=== PATIENT | female | born 1955 | race Caucasian/White ===

== ENCOUNTER 2019-10-04 07:19 | Outpatient (CLI) | payer OTHER | END 2019-10-04 07:20 | disposition critical access hospital (66) | LOC: EMS 07:19 | PROVIDERS: ATTEND Surgery | DX: R03.0 Elevated blood-pressure reading, without diagnosis of hypertension (principal); R68.89 Other general symptoms and signs | CPT/HCPCS: A0425; A0429 ==

== ENCOUNTER 2020-03-10 10:07 | Emergency (ER) | payer OTHER ==
--- NOTE | 2020-03-10 10:32 | ED Physician Documentation ---
PD HPI FOCAL NEURO - Stated complaint Stated Complaint: HIGH BLOOD PRESSURE - Chief complaint Chief Complaint: Cardiac - History obtained from History obtained from: Patient - Additional information Additional information: 64-year-old woman with an acute disequilibrium starting between 4 and 6 AM this morning. She feels like she is off balance. She has a history of stroke last year and is on aspirin, Plavix, lisinopril, atorvastatin, hydrochlorothiazide. She checks her blood pressure several times and it is elevated and she is concerned about that. Denies chest pain, trouble breathing, headache. Review of Systems Ten Systems: 10 systems reviewed and negative Constitutional: reports: Reviewed and negative Cardiac: reports: Reviewed and negative Respiratory: reports: Reviewed and negative PD PAST MEDICAL HISTORY - Past Medical History Past Medical History: Yes Neuro: CVA, TIA - Present Medications Home Medications: Ambulatory Orders Medication Instructions Recorded Confirmed Aspirin [Aspirin EC] 1 tab PO DAILY MDD 1 10/04/19 10/04/19 Atorvastatin Calcium 2 tab PO DAILY 10/04/19 10/04/19 Clopidogrel [Plavix] 1 tab PO DAILY 10/04/19 10/04/19 Lisinopril/Hydrochlorothiazide 1 tab PO DAILY #30 tablet 10/04/19 [Lisinopril-Hctz 20-25 mg Tab] - Allergies Allergies/Adverse Reactions: Allergies Allergy/AdvReac Type Severity Reaction Status Date / Time No Known Drug Allergies Allergy Verified 03/10/20 10:29 - Social History Does the pt smoke?: No Smoking Status: Never smoker Does the pt drink ETOH?: No Does the pt have substance abuse?: No - Immunizations Immunizations are current?: Yes - POLST Patient has POLST: No PD ED PE NORMAL - Vitals Vital signs reviewed: Yes - General General: Alert and oriented X 3, No acute distress - HEENT HEENT: PERRL, EOMI - Neck Neck: Supple, no meningeal sign, No bony TTP - Cardiac Cardiac: RRR, No murmur - Respiratory Respiratory: No respiratory distress, Clear bilaterally - Abdomen Abdomen: Normal bowel sounds, Soft, Non tender - Back Back: No CVA TTP, No spinal TTP - Derm Derm: Normal color, Warm and dry - Extremities Extremities: No edema, No calf tenderness / cord - Neuro Neuro: Alert and oriented X 3, No motor deficit, No sensory deficit, Normal speech Eye Opening: Spontaneous Motor: Obeys Commands Verbal: Oriented GCS Score: 15 - Psych Psych: Normal mood, Normal affect NIHSS - Time Time: 10:20 - Level of Consciousness Level of consciousness: (0) Alert, Keenly responsive LOC Questions: (0) Answers both Q's correct LOC Commands: (0) Performs both correctly - Gaze Best Gaze: (0) Normal - Visual Visual: (0) No loss - Facial Palsy Facial Palsy: (0) Normal, symmetrical movement - Motor Arms (both separate) Motor Arm (right): (0) No drift Motor Arm (left): (0) No drift - Motor Legs (both separate) Motor Leg (right): (0) No drift Motor Leg (left): (0) No drift - Limb Ataxia Limb Ataxia: (0) Absent - Sensory Sensory: (0) Normal - Best Language Best Language: (0) No aphasia - Dysarthria Dysarthria: (0) Normal - Extinction and Inattention (formally neg Extinction and inattention: (0) No abnormality - Total Score/Results Total Score/Result: 0 Results - Vitals Vitals: Vital Signs - 24 hr 03/10/20 03/10/20 03/10/20 10:12 10:29 11:14 Temperature 36.1 C L 36.7 C Heart Rate 66 71 53 L Respiratory 16 14 13 Rate Blood Pressure 180/82 H 157/71 H 171/85 H O2 Saturation 100 99 99 Oxygen O2 Source Room air - EKG (time done) 1017 Rate: Rate (enter#) (62) Rhythm: NSR [place]: Normal Intervals: Prolonged [place], Other (LAFB) Ischemia: Normal ST segments Computer interpretation: Agree with computer - Labs Labs: Laboratory Tests 03/10/20 03/10/20 03/10/20 10:30 10:30 10:47 WBC 4.7 L RBC 4.58 Hgb 14.4 Hct 41.9 MCV 91.5 MCH 31.4 H MCHC 34.4 RDW 11.7 L Plt Count 220 MPV 8.9 Neut # (Auto) 2.9 Lymph # (Auto) 1.2 L [place] # (Auto) 0.4 Eos # (Auto) 0.2 Baso # (Auto) 0.1 Absolute Nucleated RBC 0.00 Nucleated RBC % 0.0 PT 12.5 INR 1.1 Sodium 141 Potassium 3.7 Chloride 104 Carbon Dioxide 27 Anion Gap 10.0 BUN 15 Creatinine 0.7 Estimated GFR (MDRD) 84 L Glucose 109 H Calcium 9.4 PD MEDICAL DECISION MAKING - ED course ED course: 64-year-old woman with history of stroke presents with an acute disequilibrium, NIH stroke scale is 0. She noted elevated blood pressures at home. Initial plan was to get MRI and monitor her blood pressures potentially treating them. MRI is down no so change to CT angiography of the head and neck. Given the NIH stroke scale of 0 and timing potentially having started 6-1/2 hours ago I do not think she is a TPA candidate. 64-year-old woman presents with an acute disequilibrium and elevated blood pressures in the setting of having had a stroke maybe 5 or 6 months ago. Her NIH stroke scale was 0 but she did need assistance walking here. Initially ordered MRI but it was canceled because her MRI is down to due to a power outag e, CT angiography of the head and neck was negative with the exception of a left thyroid cyst which was discussed with the patient and discussed need for follow- up imaging with her PCP. Given persistent neurologic symptoms, probably needs MRI and call to [facility] at patient's request at 11:40 AM. Initially spoke with the emergency department physician, Dr. Cassidy who wondered if the patient could be a direct admit and then subsequently spoke with their hospitalist, Dr. Mitchell Duarte who accepts to his service. Patient's request to go private vehicle with her child driving. She did decide this after discussion of risks and benefits and signed the transfer by private vehicle addendum. Departure - Departure Disposition: 02 Transfer Acute Care Hosp Clinical Impression: Stroke-like symptom, Dysequilibrium, Elevated blood pressure reading, Thyroid nodule Condition: Stable
[2020-03-10 10:34] LABS: BASOPHILS # (AUTO) 0.1 10^3/uL (0.0-0.1); BASOPHILS % (AUTO) 1.1 %; EOSINOPHILS # (AUTO) 0.2 10^3/uL (0.0-0.7); EOSINOPHILS % (AUTO) 4.9 %; HGB - HEMOGLOBIN 14.4 g/dL (12.0-16.0); LYMPHOCYTES # (AUTO) 1.2 10^3/uL (1.5-3.5); LYMPHOCYTES % (AUTO) 25.3 %; MEAN CORPUSCULAR HEMOGLOBIN 31.4 pg (27.0-31.0); MEAN CORPUSCULAR HGB CONC 34.4 g/dL (32.0-36.0); MEAN CORPUSCULAR VOLUME 91.5 fL (81.0-99.0); MEAN PLATELET VOLUME 8.9 fL (7.9-10.8); MONOCYTES # (AUTO) 0.4 10^3/uL (0.0-1.0); MONOCYTES % (AUTO) 7.8 %; NEUTROPHILS # (AUTO) 2.9 10^3/uL (1.5-6.6); NEUTROPHILS % (AUTO) 60.5 %; PLT - PLATELET COUNT 220 10^3/uL (130-450); RED BLOOD COUNT 4.58 10^6/uL (4.20-5.40); RED CELL DISTRIBUTION WIDTH 11.7 % (12.0-15.0); WHITE BLOOD COUNT 4.7 x10^3/uL (4.8-10.8)
[2020-03-10 10:43] LABS: CALCIUM 9.4 mg/dL (8.5-10.3); CREATININE 0.7 mg/dL (0.4-1.0)
[2020-03-10] MEDS ORDERED: IOVERSOL 320 100 ML VIAL IVP ONE ×2 (10:44→13:09)
[2020-03-10 10:58] LABS: INR 1.1 (0.8-1.2); PT - PROTHROMBIN TIME 12.5 secs (9.9-12.6)
--- NOTE | 2020-03-10 11:13 | CT Report ---
PROCEDURE: ANGIO HEAD W/WO INDICATIONS: CVA sx CONTRAST: IV CONTRAST: Optiray 320 ml: 80 PO CONTRAST: *NO PO CONTRAST TECHNIQUE: Precontrast 4.5 mm thick angled axial sections acquired from the foramen magnum to the vertex. Afte r the administration of intravenous contrast, 1 mm thick sections acquired through the [place] of [place] is. Postcontrast 4.5 mm thick sections then re-acquired from the foramen magnum to the vertex. 3-di mensional idyndcu-shiixosrj-qwuhtixzvk (MIP) and/or volume rendering reformats were acquired of the c entral intracranial vasculature. For radiation dose reduction, the following was used: automated ex posure control, adjustment of mA and/or kV according to patient size. COMPARISON: Correlation is made with the accompanying neck CT angiogram, 03/10/2020. FINDINGS: Image quality: Limited by bolus timing, with venous contamination. Anterior circulation: Intracranial internal carotid arteries are normal in size and flow. Note is ma de of a diminutive right A1 segment, with a correspondingly robust left A1 segment. This is considere d to be a developmental variant of no clinical consequence. The flow within the paired anterior cere bral arteries is otherwise normal and symmetric. The flow within the middle cerebral arteries is nor mal and symmetric. The anterior communicating artery is seen. No aneurysms are seen. Posterior circulation: Visualized portions of the vertebral arteries demonstrate normal caliber, and join to form a normal appearing basilar artery. Flow within the posterior cerebral arteries is norm al and symmetric. No aneurysms are seen. CSF spaces: Ventricles are normal in size and shape. Basal cisterns are patent. No extra-axial flu id collections. Brain: No midline shift. No intracranial bleeds or masses. Mccray-white matter interface appears int act. Skull and face: Calvarium and facial bones appear intact, without suspicious lesions. Sinuses: There is a small amount of mucosal thickening seen within the posterior maxillary sinuses, right more prominent than left. Visualized sinuses and mastoids are otherwise clear. IMPRESSION: No significant intracranial abnormality is seen. No significant intracranial arterial abnormalities are seen. Reviewed by: Brandon Key MD on 03/10/2020 10:12 AM [facility] Approved by: Brandon Key MD on 03/10/2020 10:12 AM [facility] Station ID: [id number]
--- NOTE | 2020-03-10 11:17 | CT Report ---
PROCEDURE: ANGIO NECK W INDICATIONS: CVA sx CONTRAST: IV CONTRAST: Optiray 320 ml: 80 PO CONTRAST: *NO PO CONTRAST TECHNIQUE: After the administration of intravenous contrast, 1.5 mm axial sections acquired from the aortic arch to the [place] of [place]. Coronal 3-D maximum intensity projection (MIP) and/or volume rendering ref ormats were then performed. For radiation dose reduction, the following was used: automated exposur e control, adjustment of mA and/or kV according to patient size. COMPARISON: Correlation is made with the accompanying head CT angiogram, 03/10/2020. FINDINGS: Image quality: Excellent. Carotid system: The great vessels demonstrate a conventional anatomy as they arise from the aortic a rch. The origins of the common carotid arteries appear patent. The common carotid arteries demonstr ate normal calibers and courses. The bifurcation regions demonstrate mild calcification and irregula rity, without a hemodynamically significant stenosis. The more distal internal carotid arteries demo nstrate normal caliber and course. Posterior circulation: The origins of the vertebral arteries appear patent. The more superior porti ons of the vertebral arteries demonstrate normal course and caliber. The left vertebral artery is dom inant to the right. They join to form a normal appearing basilar artery. Soft tissues: Visualized neck soft tissues demonstrate no suspicious abnormalities. There is a prio r right hemithyroidectomy. The left thyroid is irregular and demonstrates a 1.7 cm nodule anteriorly and a partially projected component seen adjacent to the esophagus. Bones: No suspicious bony lesions. Visualized cervical spine appears normally aligned. There is mod erate to severe disc space narrowing seen at C5-C6, C6-C7, and C7-T1, with bridging anterior osteophy lukasz. Posterior directed endplate osteophytes are seen, which are worst at C6-C7. IMPRESSION: No hemodynamically significant stenosis can be seen within the arteries of the neck. Note is made of prior right hemithyroidectomy. There is also a 1.7 cm left thyroid nodule. If not al ready previously evaluated, please consider a dedicated thyroid ultrasound for further evaluation. Moderate to prominent lower cervical spine degenerative changes are noted. The estimate of stenosis included in the report of the imaging study was calculated using the NASCET method Reviewed by: Brandon Key MD on 03/10/2020 10:16 AM [facility] Approved by: Brandon Key MD on 03/10/2020 10:16 AM [facility] Station ID: [id number]
[2020-03-10 13:53] LABS: C. PNEUMONIAE- RESP PCR PANEL NOT DETECTED
[2020-03-10 15:19] VITALS: BP 168/54
== END 2020-03-10 14:40 | disposition short-term general hospital (02) ==
LOC: ED 10:07
DX: R42 Dizziness and giddiness (principal); R03.0 Elevated blood-pressure reading, without diagnosis of hypertension; Z86.73 Personal history of transient ischemic attack (TIA), and cerebral infarction without residual deficits; Z79.02 Long term (current) use of antithrombotics/antiplatelets; Z79.82 Long term (current) use of aspirin; E04.1 Nontoxic single thyroid nodule; M47.812 Spondylosis without myelopathy or radiculopathy, cervical region; I44.4 Left anterior fascicular block; Z20.822 Contact with and (suspected) exposure to COVID-19
CPT/HCPCS: 0202U; 36415; 70496; 70498; 80048; 85025; 85610; 93005; 99283; 99285; Q9967

== ENCOUNTER 2020-03-31 13:54 | Outpatient (CLI) | payer OTHER | END 2020-03-31 13:55 | disposition home or self-care (01) | LOC: NS 13:54 | PROVIDERS: ATTEND Physician Assistant | DX: Z71.3 Dietary counseling and surveillance (principal); I10 Essential (primary) hypertension; E78.5 Hyperlipidemia, unspecified; Z86.73 Personal history of transient ischemic attack (TIA), and cerebral infarction without residual deficits | CPT/HCPCS: 97802 ==

== ENCOUNTER 2022-07-27 13:49 | Outpatient (CLI) | payer OTHER ==
--- NOTE | 2022-07-27 14:43 | Sleep Patient Instructions ---
Sleep Center Visit Summary - Patient Visit Information Reason for Visit: Initial consult to establish care for PAP therapy - Patient Instructions Additional Instructions: You were here for follow up of CPAP therapy. You will be continued on CPAP therapy with pressure at 6-16 cmH2O. A prescription to update your CPAP supplier will be sent. You should follow up with sleep care in 1-2 months. You may contact us sooner for any questions or concerns. - Clinic Information Contact: [facility] [address] [place] [address] [email or web address] T: [phone]
--- NOTE | 2022-07-27 14:52 | SLEEP CARE CONSULTATION ---
Information from patient questionnaire entered by Aris Beebe. I have reviewed and concur with the information entered by Aris Beebe. This document represents the service I personally performed and the decisions made by me, Julia Barriga ARNP. History of Present Illness Service Date and Time: 07/27/2022 1349 Reason for Visit: New patient, Previously diagnosed sleep apnea, sleep apnea on CPAP therapy Chief Complaint: reports: Other (establishing care) Usual bedtime: 9PM Time it takes to fall asleep: 5MINS Snores at night: Yes Number of times waking at night: 0 Toss, Turn, or Twitch while sleeping: Yes Recalls having dreams: Yes Usually gets out of bed at: 430AM Feels refreshed in the morning: No Morning headache: No Sleepy or fatigued during the day: Yes Ever fallen asleep while driving: No Takes day naps: Yes Dreams during day naps: No Prior sleep studies: Yes Year and Where: 2020 [facility] Additional HPI information: CHRISTINA RODRIGUEZ was previously diagnosed to have moderate, AHI 15.3, obstructive sleep apnea-hypopnea syndrome as seen in PSG through [facility] dated 05/28/2020 and comes in today to establish care for CPAP therapy. - Parasomnia Symptoms Ever been unable to move upon waking from sleep: No Walks in sleep: No Talks in sleep: No Ever acted out dreams in sleep: No Ever felt weak in the knees when startled or emotional: No Bothered by creepy, crawly, restless sensations in legs: No Problems with memory or concentration: No CPAP Compliance Data - Data Reviewed with Patient Average duration of nightly device use: 7 hours 16 minutes Compliance rate %: 19 ( days used) Current pressure setting (cmH2O): 6-16 Average residual AHI: 1.4 Central apnea: 0.3 Obstructive apnea: 0.3 Average large leak: 11.5 L/min Compliance data discussion: She is not sure how long it has been since she gets supplies. She has a ResMed Airsense 10 that was set up at 07/2020. She is using a nasal pillows mask, ResMed AirFit P10, small cushion. Subjective Missed days of use due to: reports: mask issues, other (not feeling improvement of issues) Patient concerns: reports: air blowing in eyes, mask leak noise, nasal congestion, dry mouth, nose, throat, epistaxis. denies: aerophagia, mask discomfort, condensation in mask/hose Observed to snore while using device: No Current pressure setting perceived as: comfortable On therapy, patient: reports: other (not feeling improvements from prior to CPAP use). 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 Patient is Single and lives in [place]. Have you smoked in the past 12 months: No Alcohol use: Yes Alcohol amount and frequency: 1 A WEEK Caffeine use: Yes Caffeine amount and frequency: 2X A WEEK Family History Family history of sleep disordered breathing: No Family Hx Sleep Apnea: Sibling: Sleep apnea - Untreated Allergies and Home Medications Known drug allergies: No Drug allergies reviewed: Yes Home medication list reviewed: Yes (see updated medication in EMR) Allergy and home medication list: Allergies No Known Drug Allergies Allergy (Verified 07/26/22 10:52) Review of Systems Weight gain over past 5 years: 7-8 Cardiovascular: reports: high blood pressure Gastrointestinal: denies: heartburn Neurological: denies: headaches Psychiatric: denies: anxiety, depression Ear/Nose/Throat: reports: tonsillectomy, wisdom teeth removed Endocrine: reports: thyroid disease (has half a thyroid, surgically removed for nodule) Immunologic: reports: sneezing Physical Exam Vital signs obtained and entered by: ARIS Hu MA Blood Pressure: 128/78 (LEFT ARM) Cuff size: regular Heart Rate: 53 O2 Saturation: 99 Height: 5 ft 6 in Weight: 214 lb Body Mass Index: 34.5 BMI Classification: Obese Neck circumference: 17.25 Heart: regular rate and rhythm Lungs: clear bilaterally Impression and Plan 1. Obstructive Sleep Apnea-Hypopnea Syndrome, very severe, with fair treatment compliance and good apnea control. She has been using a CPAP intermittently since diagnosis in 2020. She does not feel difference in sleeping better or overall restfulness but states she did not have those symptoms before she was evaluated for and diagnosed with sleep apnea. She states she was diagnosed after her stroke. She started trying to use the machine and establish care to help her with her therapy. Her pressure is set at 6-16 cmH2O and her residual AHI is 1.4. She has significant improvement of her sleep apnea. She has had issues with nasal congestion and dry mouth with using the CPAP. She has also noted mask leak noises. She has not changed her filter and her humidity is set at 4. She is not using a heated hose but thinks she has one at home. I showed her how to change the humidity on her CPAP and set it at 5 to try to reduce nasal congestion and dryness. She voiced understanding. I will have her come back in 1-2 months to recheck compliance and see how she is doing. A prescription for supplies will be sent so she can get more supplies to change out filters, etc. Patient's apnea severity and rationale for treatment to reduce apnea, improve sleep quality and reduce cardiovascular and cerebrovascular events was reviewed. I also reviewed the benefit of consistent device use of CPAP for hypertension and cerebrovascular disease (history of stroke). 2. Obesity, unspecified. Currently patients BMI is 34.5. Obesity increases the risk of apnea, CPAP pressure requirements and overall health risks especially cardiovascular and diabetes. Thus patient is advised to lose weight. * Continue auto CPAP pressure at 6-16 cmH2O * Update supplies * Notify me if snoring with mask or feeling that the pressure is too much or too little * Attempt to lose weight * Call this office if any problems using CPAP * Return for follow up in 1-2 months, or sooner if concerns arise Counseling Topics: Weight loss health impact Visit Type: In Office Time Spent with Patient (minutes): 42 Provider Statement: I spent 100% of the Face to Face Visit with the patient with greater than 50% spent counseling the patient and coordination of care.
[2022-07-27 14:54] VITALS: BP 128/78
== END 2022-07-27 13:50 | disposition home or self-care (01) ==
LOC: SC 13:49
PROVIDERS: ATTEND Nurse Practitioner Family
DX: G47.33 Obstructive sleep apnea (adult) (pediatric) (principal); E66.9 Obesity, unspecified; Z68.34 Body mass index [BMI] 34.0-34.9, adult
CPT/HCPCS: 99203; 99212

== ENCOUNTER 2022-09-28 08:17 | Outpatient (CLI) | payer OTHER ==
--- NOTE | 2022-09-28 08:44 | Sleep Patient Instructions ---
Sleep Center Visit Summary - Patient Visit Information Reason for Visit: Two month followup for PAP therapy - Patient Instructions Additional Instructions: You were here for follow up of CPAP therapy. You will be continued on CPAP therapy with pressure at 6-16 cmH2O. You should follow up with sleep care in 12 months. You may contact us sooner for any questions or concerns. - Clinic Information Contact: [facility] [address] [place] [address] [email or web address] T: [phone]
--- NOTE | 2022-09-28 08:52 | SLEEP CARE CONSULTATION ---
Information from patient questionnaire entered by Hope Beebe. I have reviewed and concur with the information entered by Hope Beebe. This document represents the service I personally performed and the decisions made by , Julia Barriga ARNP. History of Present Illness Service Date and Time: 09/28/2022 0817 Previous diagnosis: Moderate, Obstructive Sleep Apnea-Hypopnea Syndrome AHI: 15.3 (in 2020) Reason for follow up: other (2 MONTH F/U) Equipment type: CPAP (RESMED Airsense 10, s/u 07/2020) Equipment obtained from: [facility] (has not recieved call for supplies) Mask style: Nasal pillows Backup mask available: No (will keep old mask when replaced) Last cushion change: a while Prior sleep studies: Yes Year and Where: 2020 [facility] HPI additional information: CHRISTINA RODRIGUEZ was diagnosed to have moderate, AHI 15.3, obstructive sleep apnea-hypopnea syndrome and returned today for CPAP therapy two month follow-up. Sleep Study - Results Prior sleep studies: Yes Year and Where: 2020 [facility] CPAP Compliance Data - Data Reviewed with Patient Average duration of nightly device use: 5 HRS 28 MINS Compliance rate %: 73 (07/29/22-09/26/22; 45/60 days used) Current pressure setting (cmH2O): 6-16 Average residual AHI: 3.1 Central apnea: 1.5 Obstructive apnea: 0.3 Hypopnea: 1 Average large leak: 8.8 L/min Subjective Missed days of use due to: reports: travel (two vacations) Patient concerns: reports: dry mouth, nose, throat. denies: aerophagia, mask discomfort, air blowing in eyes, mask leak noise, condensation in mask/hose, nasal congestion, epistaxis Observed to snore while using device: No Current pressure setting perceived as: comfortable On therapy, patient: reports: other (has not noticed difference when using CPAP). denies: drowsiness while driving Initial [place] Sleepiness Scale score: 11 (07/27/22) Current [place] Sleepiness Scale score: 10 (09/28/22) Allergies and Home Medications Known drug allergies: No Drug allergies reviewed: Yes Home medication list reviewed: Yes (no changes) Allergy and home medication list: Allergies No Known Drug Allergies Allergy (Verified 09/28/22 08:19) Review of Systems Review of systems same as previous: Yes (no changes) Physical Exam Vital signs obtained and entered by: HOPE Hu MA Blood Pressure: 138/72 (LEFT ARM) Cuff size: regular Heart Rate: 53 O2 Saturation: 98 Height: 5 ft 6 in Weight: 214 lb 9.6 oz Body Mass Index: 34.6 BMI Classification: Obese Impression and Plan 1. Obstructive Sleep Apnea-Hypopnea Syndrome, moderate, with good treatment compliance and good apnea control. On CPAP therapy, the patient states she has not really notice a difference in restfulness or better sleep quality. Patient does have significant improvement of her sleep apnea and is satisfied with current CPAP pressure settings and therapy. Patient has been able to bring up her compliance and is using her machine consistently. She only missed using her CPAP when she when on vacation because she did not take it with her. Patient states her humidifier runs out of overnight. She does occasionally have some oral dryness. She appears to have some increase of average large leaks. She states she has not been able to change her nasal cushion in quite some time. She has not received any new supplies. I encouraged her to reach out to her DME to get more nasal pillows cushions so that she can replace the old ones and reduce leaking. This can help reduce oral dryness. I also encouraged her to make sure she is keeping her mouth closed at night and has enough water in the humidifier chamber for the night. She may also adjust her humidity setting as needed. She voiced understanding. Patient's apnea severity and rationale for treatment to reduce apnea, improve sleep quality and reduce cardiovascular and cerebrovascular events was reviewed. I also reviewed the benefit of consistent device use of CPAP for hypertension and cerebrovascular disease. 2. Obesity, unspecified. Currently patients BMI is 34.6. Obesity increases the risk of apnea, CPAP pressure requirements and overall health risks especially cardiovascular and diabetes. Thus patient is advised to lose weight. * Continue auto CPAP pressure at 6-16 cmH2O * Notify me if snoring with mask or feeling that the pressure is too much or too little * Attempt to lose weight * Call this office if any problems using CPAP * Return for follow up in 12 months, or sooner if concerns arise Counseling Topics: Spare mask, Weight loss health impact Visit Type: In Office Time Spent with Patient (minutes): 22 Provider Statement: I spent 100% of the Face to Face Visit with the patient with greater than 50% spent counseling the patient and coordination of care.
[2022-09-28 08:53] VITALS: BP 138/72
== END 2022-09-28 08:18 | disposition home or self-care (01) ==
LOC: SC 08:17
PROVIDERS: ATTEND Nurse Practitioner Family
DX: G47.33 Obstructive sleep apnea (adult) (pediatric) (principal); E66.9 Obesity, unspecified; Z68.34 Body mass index [BMI] 34.0-34.9, adult
CPT/HCPCS: 99212; 99213

== ENCOUNTER 2023-10-09 08:25 | Outpatient (CLI) | payer MEDICARE, BC ==
--- NOTE | 2023-10-09 09:04 | Sleep Patient Instructions ---
Sleep Center Visit Summary - Patient Visit Information Reason for Visit: Annual follow-up - Patient Instructions Additional Instructions: You will continue with CPAP therapy with pressure changed to 5-10 cmH2O. Please let us know if the pressure change is uncomfortable and we can make further adjustments of the pressure. I am ordering a new sleep study to re-verify diagnosis and severity due to weight loss. A supply prescription with transfer of care to new DME supplier will be sent. We encourage you to continue to try to lose weight. Please follow up with the sleep care office after sleep study. - Clinic Information Contact: [facility] [address] [place] [address] [email or web address] T: [phone]
--- NOTE | 2023-10-09 09:10 | SLEEP CARE CONSULTATION ---
Information from patient questionnaire entered by Aris Beebe. I have reviewed and concur with the information entered by Aris Beebe. This document represents the service I personally performed and the decisions made by , Julia Barriga ARNP. History of Present Illness Service Date and Time: 10/09/2023824 Previous diagnosis: Moderate, Obstructive Sleep Apnea-Hypopnea Syndrome AHI: 15.3 (in 2020) Reason for follow up: annual (LAST SEEN 09/2022) Equipment type: CPAP (RESMED Airsense 10, s/u 07/2020) Equipment obtained from: [employer] (insurance change to Medicare and [employer]) Mask style: Nasal pillows Backup mask available: No Last cushion change: long time Prior sleep studies: Yes Year and Where: 2020 [facility] HPI additional information: CHRISTINA RODRIGUEZ was diagnosed to have moderate, AHI 15.3, obstructive sleep apnea-hypopnea syndrome and returned today for CPAP therapy annual follow-up. Sleep Study - Results Prior sleep studies: Yes Year and Where: 2020 [facility] CPAP Compliance Data - Data Reviewed with Patient Average duration of nightly device use: 6 HRS 47 MINS Compliance rate %: 26 (10/04/22-10/03/23; 106/365 days used) Current pressure setting (cmH2O): 6-16 Average residual AHI: 4.4 Central apnea: 2.4 Obstructive apnea: 0.3 Hypopnea: 1.2 Average large leak: 9.9 L/min Subjective Missed days of use due to: reports: mask issues Patient concerns: reports: mask discomfort, nasal congestion, dry mouth, nose, throat (EXTREME DRY MOUTH). denies: aerophagia, air blowing in eyes, mask leak noise, condensation in mask/hose, epistaxis Observed to snore while using device: No Current pressure setting perceived as: comfortable On therapy, patient: reports: other (not noticing difference when using her CPAP). denies: drowsiness while driving Initial [place] Sleepiness Scale score: 11 (07/27/22) Current [place] Sleepiness Scale score: 11 (10/09/23) Allergies and Home Medications Known drug allergies: No Drug allergies reviewed: Yes Home medication list reviewed: Yes (no changes) Allergy and home medication list: Allergies No Known Drug Allergies Allergy (Verified 10/09/23 08:30) Review of Systems Review of systems same as previous: Yes (NO CHANGE) Physical Exam Vital signs obtained and entered by: ARIS Hu MA Blood Pressure: 131/66 (RIGHT ARM) Cuff size: regular Heart Rate: 53 O2 Saturation: 100 Height: 5 ft 6 in Weight: 172 lb 3.2 oz Weight change since last visit: 42 lb loss Body Mass Index: 27.8 BMI Classification: Overweight Impression and Plan 1. Obstructive Sleep Apnea-Hypopnea Syndrome, moderate, with poor treatment compliance and good apnea control. Patient states she just improvement of her sleep or restfulness in the morning when using her CPAP. She has had difficulty using her CPAP because she has been having middle the night wake ups and it is just uncomfortable. She has also been waking up with very dry throat. I reviewed her therapy data which shows increase in central index at 2.4. I am going to adjust her pressure to 5-10 cm H2O to see if this will improve patient comfort. Patient's apnea severity and rationale for treatment to reduce apnea, improve sleep quality and reduce cardiovascular and cerebrovascular events was reviewed. I also reviewed the benefit of consistent device use of CPAP for hypertension, cerebrovascular disease. Patient just does not want to have to use the CPAP but she is willing to try to improve her use of the CPAP. Patient has had an intentionally 42 pound loss in the last year. She is also finding the pressure to be too high on her CPAP. Because of her weight loss and need for adjustments of her pressure, I feel it is prudent to have her repeat a sleep study to verify any changes in her sleep apnea severity. A PSG will be ordered and we will see her in office after the sleep study to review results. 2. Overweight, unspecified. Currently patients BMI is 27.8. She has lost 42 pounds since her last appointment. Obesity increases the risk of apnea, CPAP pressure requirements and overall health risks especially cardiovascular and diabetes. Thus patient is advised to continue to try to lose weight. * Transfer DME * Verifying PSG due to weight loss * Change auto CPAP pressure to 5-10 cmH2O * Update supply prescription * Notify me if snoring with mask or feeling that the pressure is too much or too little * Continue to try to lose weight * Call this office if any problems using CPAP * Return for follow up after sleep study to verify diagnosis, or sooner if concerns arise Adjust device pressure to (cmH2O): 5-10 Counseling Topics: Spare mask, Weight loss health impact Prescriptions: Device supplies Plan: PSG to verify diagnosis Visit Type: In Office Time Spent with Patient (minutes): 24 Provider Statement: I spent 100% of the Face to Face Visit with the patient with greater than 50% spent counseling the patient and coordination of care.
[2023-10-09 09:29] VITALS: BP 131/66; O2SAT 100
== END 2023-10-09 08:26 | disposition home or self-care (01) ==
LOC: SC 08:25
PROVIDERS: ATTEND Nurse Practitioner Family
DX: G47.33 Obstructive sleep apnea (adult) (pediatric) (principal); E66.3 Overweight; Z68.27 Body mass index [BMI] 27.0-27.9, adult
CPT/HCPCS: 99213; G0463; 99212